=== PATIENT | male | born 1975 | race Hispanic/Latino ===

== ENCOUNTER → 2024-08-19 | Outpatient (REF) | payer OTHER ==
[~2024-08-19] MED LIST: AMLODIPINE-BEN1 EAC5 PO; ATENOLOL-CHLOR1 EAC1 PO
== END | disposition home or self-care (01) ==
LOC: CARD 05:00 → OR 08-24 06:59 → EDSTATUS 08-24 11:00
PROVIDERS: ATTEND Internal Medicine Gastroenterology
DX: Z12.11 Encounter for screening for malignant neoplasm of colon (principal); Z01.810 Encounter for preprocedural cardiovascular examination; Z53.9 Procedure and treatment not carried out, unspecified reason
CPT/HCPCS: 93005

== ENCOUNTER → 2024-11-02 | Day surgery (SDC) | payer OTHER ==
[~2024-11-02] MED LIST changes: +FENTANYL CITRATE/PF 100MCG/2 ML INJ ONE; +HYOSCYAMINE SULFATE 0.5 MG/ML INJ ONE; +KETAMINE 50MG/5ML SYR ONE; +LACTATED RINGER'S 1,000 ML ONE; +LIDOCAINE HCL 2% LOCAL INJ 5 ML SDV VIAL INJ ONE; +METOCLOPRAMIDE HCL 10 MG/2ML VIAL ONE; +PROPOFOL IV EMULSION 50 ML IV ONE
[2024-11-02] MEDS: LACTATED RINGER'S 1,000 ML BAG IV ONE (08:56)
[2024-11-02 10:59] VITALS: TEMP 98.6
[2024-11-02 11:20] VITALS: BP 127/92; PULSE 94; RESP 18; O2SAT 100
== END | disposition home or self-care (01) ==
LOC: OR 08:13
PROVIDERS: ATTEND Internal Medicine Gastroenterology
DX: K29.70 Gastritis, unspecified, without bleeding (principal); K62.1 Rectal polyp; K31.A15 Gastric intestinal metaplasia without dysplasia, involving multiple sites; K20.90 Esophagitis, unspecified without bleeding; K21.9 Gastro-esophageal reflux disease without esophagitis; K64.8 Other hemorrhoids; E66.9 Obesity, unspecified; I10 Essential (primary) hypertension; Z79.899 Other long term (current) drug therapy; Z68.34 Body mass index [BMI] 34.0-34.9, adult
CPT/HCPCS: 43239; 45385; J1980; J2003; J2470; J2704; J2765; J3010; J7121